=== PATIENT | female | born 1965 | race Caucasian/White ===

== ENCOUNTER 2018-10-05 10:50 | Emergency (ER) | payer OTHER ==
--- OUTSIDE RECORDS SUMMARY | 2018-10-05 10:53 | XMS REPORT | Clinical Summary ---
:1965 Author Organization [facility] Address [address] [place] [address] Care Team Providers Name Role Phone Asked, No Pcp Primary Care Provider Unavailable Allergies Active Allergy Reactions Severity Noted Date Comments No Known Drug Allergies 05/06/2016 Medications Medication Sig Dispensed Refills Start End Status Date Date amLODIPine (NORVASC) Take 10 mg by 5 08/02/20 Active 10 mg tablet mouth once daily. 16 losartan (COZAAR) 100 Take 100 mg by 5 07/08/20 Active MG tablet mouth once daily. 16 ascorbic acid, Take 1,000 mg by 0 Active vitamin C, (vitamin mouth daily. C) 1000 MG tablet multivitamin with Take 1 tablet by 0 Active minerals tablet mouth daily. DUAVEE 0.45-20 mg Take 1 tablet by 1 08/19/20 Active tablet mouth every other 17 day. simvastatin (ZOCOR) Take 40 mg by 0 Active 40 MG tablet mouth nightly. atenolol (TENORMIN) 0 12/23/19 Active 100 MG tablet 18 montelukast TAKE 1 TABLET 90 tablet 3 03/11/20 Active (SINGULAIR) 10 mg DAILY 18 tablet ibuprofen Take 600 mg by 0 Active (ADVIL,MOTRIN) 600 MG mouth. tablet tofacitinib (XELJANZ Take 11 mg by 30 tablet 5 06/25/20 Active XR) 11 mg tablet mouth daily. 18 019 extended release 24 hr cholecalciferol, Take 2,000 Units 0 Active vitamin D3, (VITAMIN by mouth nightly. D3) 2,000 unit capsule capsule omeprazole (PriLOSEC) TAKE 1 CAPSULE BY 90 capsule 0 08/10/20 Active 40 MG capsule MOUTH EVERY DAY 18 DULoxetine (CYMBALTA) TAKE 1 CAPSULE 90 capsule 0 09/27/20 Active 30 MG capsule DAILY 18 fluticasone (FLONASE) INSTILL 2 SPRAYS 0 07/24/20 Discontinued 50 mcg/actuation IN EACH NOSTRIL 16 018 nasal spray DAILY NEEDED montelukast TAKE 1 TABLET 30 tablet 4 12/04/19 Discontinued (SINGULAIR) 10 mg EVERY DAY 17 018 tablet ENBREL SURECLICK 50 Inject 50 mg 3.92 mL 5 03/24/20 Discontinued mg/mL (0.98 mL) pen under the skin 17 018 injector once a week. DULoxetine (CYMBALTA) TAKE 1 CAPSULE 90 capsule 0 07/10/20 Discontinued 30 MG capsule DAILY 17 018 benzonatate Take 1 capsule 21 capsule 0 10/01/19 (TESSALON) 200 MG (200 mg total) by 18 018 capsule mouth 3 (three) times a day as needed for cough for up to 30 days. moxifloxacin (AVELOX) Take 1 tablet 10 tablet 0 10/01/19 400 mg tablet (400 mg total) by 18 018 mouth daily for 10 days. DULoxetine (CYMBALTA) TAKE 1 CAPSULE 90 capsule 0 10/13/19 Discontinued 30 MG capsule DAILY 18 018 ENBREL SURECLICK 50 INJECT ONE 4 Syringe 4 11/13/19 Discontinued mg/mL (0.98 mL) pen SURECLICK PEN (50 18 018 injector MG) SUBCUTANEOUSLY ONCE A WEEK. REFRIGERATE. DO NOT FREEZE. DULoxetine (CYMBALTA) TAKE 1 CAPSULE 90 capsule 0 01/06/20 Discontinued 30 MG capsule DAILY 18 018 adalimumab (HUMIRA) Inject 0.8 mL (40 1.6 mL 2 01/07/20 Discontinued 40 mg/0.8 mL mg total) under 18 018 injectionIndications: the skin every 14 Rheumatoid arthritis (fourteen) days. involving multiple sites with positive rheumatoid factor (HCC) omeprazole (PriLOSEC) Take 1 capsule 30 capsule 1 03/24/20 Discontinued 40 MG capsule (40 mg total) by 18 018 mouth daily. DULoxetine (CYMBALTA) TAKE 1 CAPSULE 90 capsule 0 03/30/20 Discontinued 30 MG capsule DAILY 18 018 HUMIRA 40 mg/0.8 mL INJECT ONE 1.6 mL 1 04/08/20 Discontinued injectionIndications: SYRINGE (40 MG) 18 018 Rheumatoid arthritis SUBCUTANEOUSLY involving multiple EVERY OTHER WEEK. sites with positive REFRIGERATE. rheumatoid factor (HCC) omeprazole (PriLOSEC) TAKE 1 CAPSULE BY 90 capsule 0 05/18/20 Discontinued 40 MG capsule MOUTH EVERY DAY 18 018 methylPREDNISolone Inject 1 mL (80 1 mL 0 05/20/20 acetate (DEPO-MEDROL) mg total) into 18 018 80 mg/mL injection the shoulder, thigh, or buttocks once for 1 dose. DULoxetine (CYMBALTA) TAKE 1 CAPSULE 90 capsule 0 06/26/20 Discontinued 30 MG capsule DAILY 18 018 methylPREDNISolone Take all tablets 21 tablet 0 08/12/20 (MEDROL DOSEPAK) 4 mg in the morning on 18 018 tablet each row. 6 day 1, 5 day 2, etc. Do not space out over the day. levoFLOXacin Take 1 tablet 7 tablet 0 08/12/20 (LEVAQUIN) 500 MG (500 mg total) by 18 018 tablet mouth daily for 7 days. Active Problems Problem Noted Date Generalized osteoarthritis of hand 09/18/2016 Bilateral non-suppurative otitis media 09/18/2016 Rheumatoid arthritis involving multiple sites with positive rheumatoid 2015 factor Overview: RF+ Depressed-agitated 05/06/2016 HTN (hypertension) 05/06/2016 Tachycardia 05/06/2016 Encounters Date Type Specialty Care Team Description 09/27/2018 Refill Rheumatology Carlota Dave MD 08/12/2018 Orders Only Rheumatology Carlota Dave MD 08/10/2018 Refill Rheumatology Mya Farrar MA 07/17/2018 Orders Only Rheumatology Carlota Dave MD Hypercalcemia ( Primary Dx) 07/15/2018 Office Visit Rheumatology Carlota Dave MD Rheumatoid arthritis involving multiple sites with positive rheumatoid factor (HCC) ( Primary Dx); High risk medication use 06/29/2018 Telephone Rheumatology Dmitri Jalloh MA 06/26/2018 Refill Rheumatology Carlota Dave MD 06/25/2018 Refill Rheumatology Anais Harden MA 06/08/2018 Telephone Rheumatology Anais Harden MA 05/28/2018 Telephone Rheumatology Dmitri Jalloh MA 05/20/2018 Office Visit Rheumatology Carlota Dave MD Rheumatoid arthritis involving multiple sites with positive rheumatoid factor (Primary Dx); High risk medication use 05/16/2018 Refill Rheumatology Carlota Dave MD 04/08/2018 Refill Rheumatology Carlota Dave MD Rheumatoid arthritis involving multiple sites with positive rheumatoid factor 03/28/2018 Refill Rheumatology Carlota Dave MD 03/24/2018 Office Visit Rheumatology Carlota Dave MD Rheumatoid arthritis involving multiple sites with positive rheumatoid factor (Primary Dx); Generalized osteoarthritis of hand; High risk medication use; Heartburn 03/11/2018 Refill Pulmonology Mohsen Alas MD 01/29/2018 Telephone Rheumatology Carlota Dave MD 01/07/2018 Telephone Rheumatology Dmitri Jalloh MA 01/06/2018 Office Visit Rheumatology Carlota Dave MD Rheumatoid arthritis involving multiple sites with positive rheumatoid factor (Primary Dx) 01/04/2018 Refill Rheumatology Carlota Dave MD 11/13/2017 Refill Rheumatology Carlota Dave MD 10/13/2017 Refill Rheumatology Carlota Dave MD after 10/04/2017 Family History Medical History Relation Name Comments Rheum arthritis Maternal Grandmother Other Sister Relation Name Status Comments Maternal Grandmother (Age 96) Sister Primary Biliary Cirrhnosis Social History Tobacco Use Types Packs/Day Years Used Date Current Every Day Smoker Cigarettes Smokeless Tobacco: Never Used Alcohol Use Drinks/Week oz/Week Comments Yes 2 Glasses of wine 1.2 Sex Assigned at Date Recorded Not on file Job Start Date Occupation Industry Not on file Not on file Not on file Travel History Travel Start Travel End No recent travel history available. Last Filed Vital Signs Vital Sign Reading Time Taken Blood Pressure 141/85 07/15/2018 4:15 PM CDT Pulse 67 07/15/2018 4:15 PM CDT Temperature - - Respiratory Rate - - Oxygen Saturation - - Inhaled Oxygen Concentration - - Weight 82.1 kg (181 lb) 07/15/2018 4:15 PM CDT Height 154.9 cm (5' 1") 01/06/2018 3:30 PM CDT Body Mass Index 34.2 07/15/2018 4:15 PM CDT Plan of Treatment Date Type Specialty Care Team Description 01/06/2019 [place] [address] [facility] [address] [place] [address] [phone] Health Maintenance Due Date Last Done Comments CERVICAL CANCER SCREENING 1987 BREAST CANCER SCREENING 2016 COLON CANCER SCREENING 2016 SHINGLES VACCINES (1 of 2) 2016 INFLUENZA VACCINE 04/29/2018 Procedures Procedure Name Priority Date/Time Associated Diagnosis Comments PTH, INTACT AND Routine 07/21/2018 8:15 Hypercalcemia Results for this CALCIUM AM CDT procedure are in the results section. C-REACTIVE PROTEIN Routine 07/15/2018 5:06 Rheumatoid arthritis Results for this PM CDT involving multiple procedure are in sites with positive the results rheumatoid factor section. ([facility]) SEDIMENTATION RATE Routine 07/15/2018 5:06 Rheumatoid arthritis Results for this PM CDT involving multiple procedure are in sites with positive the results rheumatoid factor section. (HCC) COMPREHENSIVE Routine 07/15/2018 5:06 Rheumatoid arthritis Results for this METABOLIC PANEL PM CDT involving multiple procedure are in sites with positive the results rheumatoid factor section. ([facility]) CBC WITH PLATELET AND Routine 07/15/2018 5:06 Rheumatoid arthritis Results for this DIFFERENTIAL PM CDT involving multiple procedure are in sites with positive the results rheumatoid factor section. ([facility]) COMPREHENSIVE Routine 06/17/2018 3:11 Rheumatoid arthritis Results for this METABOLIC PANEL PM CDT involving multiple procedure are in sites with positive the results rheumatoid factor section. High risk medication use CBC WITH PLATELET AND Routine 06/17/2018 3:11 Rheumatoid arthritis Results for this DIFFERENTIAL PM CDT involving multiple procedure are in sites with positive the results rheumatoid factor section. High risk medication use C-REACTIVE PROTEIN Routine 03/24/2018 11:27 Rheumatoid arthritis Results for this AM CDT involving multiple procedure are in sites with positive the results rheumatoid factor section. SEDIMENTATION RATE Routine 03/24/2018 11:27 Rheumatoid arthritis Results for this AM CDT involving multiple procedure are in sites with positive the results rheumatoid factor section. COMPREHENSIVE Routine 03/24/2018 11:27 Rheumatoid arthritis Results for this METABOLIC PANEL AM CDT involving multiple procedure are in sites with positive the results rheumatoid factor section. CBC WITH PLATELET AND Routine 03/24/2018 11:27 Rheumatoid arthritis Results for this DIFFERENTIAL AM CDT involving multiple procedure are in sites with positive the results rheumatoid factor section. TB TB TEST, CELL Routine 01/06/2018 4:34 Results for this IMMUNE MEASURE PM CDT procedure are in the results section. TB GOLD QUANTIFERON Routine 01/06/2018 4:34 Rheumatoid arthritis Results for this PM CDT involving multiple procedure are in sites with positive the results rheumatoid factor section. RHEUMATOID ARTHRITIS Routine 01/06/2018 4:27 Rheumatoid arthritis Results for this 14.3.3 ETA PM CDT involving multiple procedure are in sites with positive the results rheumatoid factor section. CYCLIC CITRULLINATED Routine 01/06/2018 4:27 Rheumatoid arthritis Results for this PEPTIDE AB, IGG PM CDT involving multiple procedure are in sites with positive the results rheumatoid factor section. RHEUMATOID FACTOR Routine 01/06/2018 4:27 Rheumatoid arthritis Results for this PM CDT involving multiple procedure are in sites with positive the results rheumatoid factor section. VECTRA(R) DA DISEASE Routine 01/06/2018 4:27 Rheumatoid arthritis Results for this ACTIVITY PM CDT involving multiple procedure are in sites with positive the results rheumatoid factor section. C-REACTIVE PROTEIN Routine 01/06/2018 4:27 Rheumatoid arthritis Results for this PM CDT involving multiple procedure are in sites with positive the results rheumatoid factor section. SEDIMENTATION RATE Routine 01/06/2018 4:27 Rheumatoid arthritis Results for this PM CDT involving multiple procedure are in sites with positive the results rheumatoid factor section. COMPREHENSIVE Routine 01/06/2018 4:27 Rheumatoid arthritis Results for this METABOLIC PANEL PM CDT involving multiple procedure are in sites with positive the results rheumatoid factor section. CBC WITH PLATELET AND Routine 01/06/2018 4:27 Rheumatoid arthritis Results for this DIFFERENTIAL PM CDT involving multiple procedure are in sites with positive the results rheumatoid factor section. after 10/04/2017 Results PTH, intact and calcium (07/21/2018 8:15 AM CDT) Calcium 10.5 (H) 8.7 - 10.2 mg/dL [facility] PTH 54 15 - 65 pg/mL [facility] PTH Comment [facility] 02 Comment: Interpretation Intact PTHCalcium (pg/mL) (mg/dL) [id number] - 65 8.6 - 10.2 Primary Hyperparathyroidism >65>10.2 Secondary Hyperparathyroidism >65<10.2 Non-Parathyroid Hypercalcemia <65>10.2 Hypoparathyroidism<15 < 8.6 Non-Parathyroid [id number] - 65< 8.6 Specimen Blood Narrative Performed At Performed at: - [facility] [address] [place], [id number] Electric Refrigerator Preparer: Sarwat Price MD, Phone:[phone] Performed at: - [id number] Electric [employer]rigerator Preparer: Dmitri Lee MD, Phone:[phone] Performing Organization Address [facility] Phone Number [facility] 02 Sedimentation rate (07/15/2018 5:06 PM CDT)Only the most recent of3 resultswithin the time period is included. Sedimentation rate 24 0 - 40 mm/hr [facility] Specimen Blood Narrative Performed At Performed at: - [facility] [address] [place], [place] [id number] Electric Refrigerator Preparer: Sarwat Price MD, Phone:[phone] Performing Organization Address [facility] Phone Number [facility] CBC with platelet and differential (07/15/2018 5:06 PM CDT)Only the most recent of4 resultswithin the time period is included. WBC 8.0 3.4 - 10.8 x10E3/uL [facility] RBC 4.16 3.77 - 5.28 x10E6/uL [facility] HGB 12.9 11.1 - 15.9 g/dL [facility] HCT 39.3 34.0 - 46.6 % [facility] MCV 95 79 - 97 fL [facility] MCH 31.0 26.6 - 33.0 pg [facility] MCHC 32.8 31.5 - 35.7 g/dL [facility] RDW 14.2 12.3 - 15.4 % [facility] Platelet count 221 150 - 379 x10E3/uL [facility] Neutrophils 58 Not Estab. % [facility] Lymphocytes 34 Not Estab. % [facility] Monocytes 7 Not Estab. % [facility] Eosinophils 1 Not Estab. % [facility] Basophils 0 Not Estab. % [facility] Neutrophils, absolute 4.7 1.4 - 7.0 x10E3/uL [facility] Lymphocytes, absolute 2.7 0.7 - 3.1 x10E3/uL [facility] Monocytes, absolute 0.5 0.1 - 0.9 x10E3/uL [facility] Eosinophils, absolute 0.1 0.0 - 0.4 x10E3/uL [facility] Basophils, absolute 0.0 0.0 - 0.2 x10E3/uL [facility] Immature granulocytes 0 Not Estab. % [facility] Immature grans (abs) 0.0 0.0 - 0.1 x10E3/uL [facility] Specimen Blood Narrative Performed At Performed at:01 - [facility] [place], [id number] Electric Refrigerator Preparer: Sarwat Price MD, Phone:[phone] Performing Organization Address [facility] Phone Number [facility] C-reactive protein (07/15/2018 5:06 PM CDT)Only the most recent of3 resultswithin the time period is included. CRP 2.8 0.0 - 4.9 mg/L [facility] Specimen Blood Narrative Performed At Performed at: - [facility] [place], [id number] Electric Refrigerator Preparer: Sarwat Price MD, Phone:[phone] Performing Organization Address [facility] Phone Number [facility] Comprehensive metabolic panel (07/15/2018 5:06 PM CDT)Only the most recent of4 resultswithin the time period is included. Glucose 92 65 - 99 mg/dL [facility] BUN, whole blood 19 6 - 24 mg/dL [facility] Creatinine 0.67 0.57 - 1.00 mg/dL [facility] EGFR Non-Afr. [place] 102 >59 mL/min/1.73 [facility] EGFR 118 >59 mL/min/1.73 [facility] BUN/creatinine ratio 28 (H) 9 - 23 [facility] Sodium 140 134 - 144 mmol/L [facility] Potassium 4.6 3.5 - 5.2 mmol/L [facility] Chloride 101 96 - 106 mmol/L [facility] CO2 23 20 - 29 mmol/L [facility] Calcium 10.4 (H) 8.7 - 10.2 mg/dL [facility] Protein 7.5 6.0 - 8.5 g/dL [facility] Albumin, S 4.9 3.5 - 5.5 g/dL [facility] Globulin, total 2.6 1.5 - 4.5 g/dL [facility] Albumin/globulin ratio 1.9 1.2 - 2.2 [facility] Total bilirubin 0.3 0.0 - 1.2 mg/dL [facility] Alkaline phosphatase 61 39 - 117 IU/L [facility] AST 20 0 - 40 IU/L [facility] ALT 34 (H) 0 - 32 IU/L [facility] Specimen Blood Narrative Performed At Performed at:[address] [place], [place] [id number] Electric Refrigerator Preparer: Sarwat Price MD, Phone:[phone] Performing Organization Address [facility] Phone Number [facility] TB GOLD Quantiferon (01/06/2018 4:34 PM CDT) Quantiferon TB gold incubated Incubated, specimen forwarded to [place], [place] [facility] completion of the assay. Specimen Blood Narrative Performed At Performed at: [id number] Electric Refrigerator Preparer: Sarwat Price MD, Phone:[phone] Performing Organization Address [facility] Phone Number [facility] TB QuantiFERON In Tube (01/06/2018 4:34 PM CDT) Quantiferon TB gold Negative Negative [facility] 02 Quantiferon criteria Comment [facility] 02 Comment: To be considered positive a specimen should have a TB Ag minus Nil value greater than or equal to 0.35 IU/mL and in addition the TB Ag minus Nil value must be greater than or equal to 25% of the Nil value. There may be insufficient information in these values to differentiate between some negative and some indeterminate test values. Quantiferon TB Ag value 0.05 IU/mL [facility] 02 Quantiferon NIL value 0.03 IU/mL [facility] 02 Quantiferon mitogen value 5.85 IU/mL [facility] 02 Quantiferon TB Ag minus NIL 0.02 IU/mL [facility] 02 value Interpretation Comment [facility] 02 Comment: The QuantiFERON TB Gold (in Tube) assay is intended for use as an aid in the diagnosis of TB infection. Negative results suggest that there is no TB infection. In patients with high suspicion of exposure, a negative test should be repeated. A positive test indicates infection with Mycobacterium tuberculosis. Among individuals without tuberculosis infection, a positive test may be due to exposure to M. kansasii, M. szulgai or M. marinum. On the Internet, go to cdc.gov/tb for further details. Narrative Performed At Performed at:02 - [facility] [address] [place], [id number] Electric Refrigerator Preparer: Dmitri Lee MD, Phone:[phone] Performing Organization Address City/State/Zipcode Phone Number [facility] 02 14.3.3 eta, Rheumatoid Arthritis (01/06/2018 4:27 PM CDT) 14.3.3 ETA, Rheum. Arthritis <0.20 ng/mL [facility] 02 Comment: Reference Range: < 0.20 Comments: 14-3-3 eta protein is a joint-derived, proinflammatory repair order clerk that is implicated in the joint erosion process and pathogenesis of RA.Serum 14-3-3 eta is elevated in both early and established RA. - Diagnostic value: 14-3-3 eta is highly specific for RA. Serum 14-3-3 eta may be especially helpful in identifying patients with early RA where it provides a 15% incremental benefit to the diagnostic sensitivity of markers, Rheumatoid Arthritis (RA) Factor and Cyclic Citrullinated Peptide (CCP) Antibodies, i.e. An additional 15% of early RA patients may be detected by 14-3-3 eta (1). - Correlation with radiographic evidence of joint damage. Positive serum 14-3-3 eta levels are associated with higher rates of joint damage as measured by radiographic assessments (Sharp/van rosario Heijde Score) (2). - Serum 14-3-3 eta levels above a threshold of 0.50 ng/ml identify RA patients who will have more rapid radiographic progression, even those who may be in SDAI remission (1). References: 1. José Miguel N, et al. Serum levels of 14-3-3 eta protein supplement C-reactive protein and rheumatoid arthritis- associated antibodies to predict clinical and radiographic outcomes in aprospective cohort of patients with recent-onset inflammatory polyarthritis. Arthritis Res Ther 2016;18:37 2. Rakesh CARO, et al. 14-3-3 eta is a novel repair order clerk associated with the pathogenesis of rheumatoid arthritis and joint damage. Arthritis Res Ther 2014;16:R99. This test was developed and its performance characteristics determined by [facility]. It has not been cleared or approved by the Food and Drug Administration. Narrative Performed At Performed at:02 - [facility] [address] [place], [place] [id number] Electric Refrigerator Preparer: Jonh Fernandez MD, Phone:[phone] Performing Organization Address City/State/Zipcode Phone Number [facility] 02 Vectra(R) DA Disease Activity (01/06/2018 4:27 PM CDT) Vectra(R) DA score 30Comment: Report Status: Final [facility] Unadjusted Score 28 [facility] Test description Comment [facility] Comment: Vectra DA measures the concentrations of 12 serum proteins. An algorithm is applied to these concentrations to calculate a quantitative disease activity score ranging from 1 to 100. Test results are intended to aid in the assessment of disease activity in patients with rheumatoid arthritis (RA) when used in conjunction with standard clinical assessment. This test is not intended or validated to diagnose RA. As of September 01, 2017 the Vectra DA score is adjusted based on the age, gender and adiposity of the patient. The unadjusted score is provided for historical comparison. The Vectra DA test is intended for clinical use. [facility] [employer] developed Vectra DA and determined its performance characteristics. The [facility] is certified under the Clinical Laboratory Improvement Amendments of 1988 (CLIA) as qualified to perform high complexity clinical testing and is a [employer] [place] [employer] Accredited Laboratory. Medical Dir: Kayden Tariq MD; Leisa Castro MD,[facility](MD) CLIA No. [id number] Rev L Vectra(R) DA level Moderate [facility] Comment: Vectra DA Disease Activity Levels: High: 45 to 100 Moderate: 30 to 44 Low: 1 to 29 Clinical validation Comment [facility] Comment: Vectra DA was validated in adults with RA, 230 who previously tested positive for rheumatoid factor (RF) and/or antibodies to cyclic citrullinated peptide (anti-CCP) and 141 who tested negative for both RF and anti-CCP. The performance of the test may differ between these two populations. (Guy et al. Arthritis Care Res.2012; 64 (12):8597-1415). The Vectra DA disease activity thresholds shown on the first page of this report reflect the Vectra DA score equivalents to [id number] cut-offs of 2.67 (low to moderate) and 4.09 (moderate to high), respectively (Inoue et al. Tania. Rheum Dis 2007;66: 407-409), and were calculated by converting the DAS28 scale (0-9.4) to the Vectra DA scale (1 to 100). The Minimally Important Difference (MID) for Vectra DA is the smallest absolute change in score that is likely to reflect change in disease activity. The MID for patients with moderate or high Vectra DA scores is 7.6. As of September 01, 2017 the Vectra DA score is adjusted based on the age, gender and adiposity of the patient. The unadjusted score is provided for historical comparison. Please note: The individual biomarker results, which are expressed to two significant figures, are required inputs into the algorithm used to calculate the Vectra DA Score. Clinical interpretation of individual biomarker levels, which have different weights in the Vectra DA algorithm, has not been established. MARIA C result 1.1Comment: RA Range: (0.29-85) ug/mL [facility] CRP result 1.4Comment: RA Range: (0.19-92) mg/L [facility] VCAM-1 result 0.47Comment: RA Range: (0.39-1.2) ug/mL [facility] IL-6 result 8.0Comment: RA Range: (2.5-200) pg/mL [facility] TNF-RI result 1.0Comment: RA Range: (0.8-3.9) ng/mL [facility] EGF result 130 pg/mL [facility] Comment: RA Range: (12-410) Inversely correlated with disease activity VEGF-A result 130Comment: RA Range: (75-790) pg/mL [facility] Leptin result 28Comment: RA Range: (1.5-120) ng/mL [facility] Resistin result 9.0Comment: RA Range: (3.5-21) ng/mL [facility] MMP-1 result 5.1Comment: RA Range: (1.3-23) ng/mL [facility] MMP-3 result 8.7Comment: RA Range: (7.9-160) ng/mL [facility] YKL-40 result 58Comment: RA Range: (22-540) ng/mL [facility] Footnote Comment [facility] Comment: RA Range: These 95% reference ranges were established from [phone],781 patient samples tested at [facility]. Complete Vectra DA Score History: Collection Date: Score: 32 (unadjusted)* Collection Date: Score: 31 (unadjusted)* Collection Date: Score: 27 (unadjusted)* Collection Date: Score: 26 (unadjusted)* Collection Date: Score: 16 (unadjusted)* Collection Date: Score: 30 Vectra(R) DA PDF . [facility] Specimen Blood Narrative Performed At Performed at: [facility] [address] [place], [place] [id number] [employer] Preparer: Kayden Tariq MD, Phone:[phone] Performing Organization Address [facility] Phone Number [facility] Cyclic citrullinated peptide antibody, IgG (01/06/2018 4:27 PM CDT) Cyclic citrullin peptide Ab 8 0 - 19 units [facility] Comment: Negative <20 Weak positive 20 - 39 Moderate [id number] - 59 Strong positive >59 Specimen Blood Narrative Performed At [facility]formed at: [facility] [address] [place], [id number] [employer] Preparer: Dmitri Lee MD, Phone:[phone] Performing Organization Address [facility] Phone Number [facility] Rheumatoid factor (01/06/2018 4:27 PM CDT) Rheumatoid arthritis latex turbid <10.0 0.0 - 13.9 IU/mL [facility] Specimen Blood Narrative Performed At [facility]formed at: [facility] [address] [place], [id number] [employer] Preparer: Sarwat Price MD, Phone:[phone] Performing Organization Address City/State/Zipcode Phone Number [facility] after 10/04/2017 Insurance Payer Benefit Plan / Group Subscriber ID Type Phone Address [employer]ETNA AETNA PPO OPEN CHOICE xxxxxxxxxx PPO (Work) [id number] Advance Directives Patient has advance care planning documents on file. For more information, please contact:Ever Chapin[address] [place] [address]
--- NOTE | 2018-10-05 11:22 | RAD REPORT ---
EXAM DESCRIPTION: CT - Head Brain Wo Cont - 10/05/2018 11:15 am CLINICAL HISTORY: DIZZINESS Drowsiness COMPARISON: No comparisons TECHNIQUE: All CT scans are performed using dose optimization technique as appropriate and may inclu de automated exposure control or mA/KV adjustment according to patient size. FINDINGS: No intracranial hemorrhage, hydrocephalus or extra-axial fluid collection.No areas of brai n edema or evidence of midline shift. The paranasal sinuses and mastoids are clear. The calvarium is intact. IMPRESSION: No acute intracranial abnormality.
[2018-10-05 14:22] LABS: Absolute Monocytes 0.5 K/uL (0.1-1.3); Absolute Neutrophil 2.9 K/uL (1.8-8.0); Basophils % 0.5 % (0-1.3); Eosinophils % 1.1 % (0-4.4); Lymphocytes % 36.9 % (15.3-44.8); MPV 10.2 fL (7.6-11.3); Monocytes % 8.3 % (3.3-12.3); RBC Red Blood Cell Count 4.91 M/uL (3.86-4.86)
--- NOTE | 2018-10-05 14:59 | RAD REPORT ---
EXAM DESCRIPTION: RAD - Chest Single View - 10/05/2018 2:51 pm CLINICAL HISTORY: MALAISE Chest pain. COMPARISON: CHEST SINGLE VIEW dated 09/01/2012 FINDINGS: Portable technique limits examination quality. The lungs are grossly clear. The heart is normal in size. No displaced fractures. IMPRESSION: No acute intrathoracic process suspected.
--- NOTE | 2018-10-05 15:22 | ER ---
Nurse's Notes [facility] Name: Luz Kowalski Age: 52 yrs Sex: Female : 1965 Arrival Date: 10/05/2018 Time: 10:51 Bed 19 Private MD: Tre Martinez B Diagnosis: Dizziness and giddiness Presentation: 10/05 11:00 Presenting complaint: Patient states: "I've been having dizzy episodes for about a aa5 week". Pt states "my vision is blurry and I keep having cold sweats". Transition of care: patient was not received from another setting of care. Onset of symptoms was September 2018. Risk Assessment: Do you want to hurt yourself or someone else? Patient reports no desire to harm self or others. Initial Sepsis Screen: Does the patient meet any 2 criteria? No. Patient's initial sepsis screen is negative. Does the patient have a suspected source of infection? No. Patient's initial sepsis screen is negative. Care prior to arrival: None. 11:00 Method Of Arrival: Ambulatory aa5 11:00 Acuity: BARRY 3 aa5 DIRECTOR OF ADMISSIONS: 11:04 LMP N/A - Post-menopause aa5 Historical: - Allergies: 11:04 No Known Allergies; aa5 - Home Meds: 11:04 Xeljanz oral oral [Active]; Atenolol Oral [Active]; Cymbalta oral oral [Active]; aa5 amlodipine oral [Active]; Zocor Oral [Active]; montelukast oral oral [Active]; Cozaar Oral [Active]; Duavee oral oral [Active]; - PMHx: 11:04 Rheumatoid Arthritis; Hypertension; Hyperlipidemia; aa5 - PSHx: 11:04 Knee surgery; foot; aa5 - Immunization history:: Adult Immunizations up to date. - Social history:: Smoking status: Patient uses tobacco products, smokes one-half pack cigarettes per day. - Ebola Screening: : No symptoms or risks identified at this time. Screenin:32 Abuse screen: Denies threats or abuse. Nutritional screening: No deficits noted. tw2 Tuberculosis screening: No symptoms or risk factors identified. Fall Risk None identified. Assessment: 13:30 General: Appears in no apparent distress. Behavior is calm, cooperative, appropriate tw2 for age. Pain: Denies pain. Neuro: Reports dizziness, pt states "i dont know what you call it but its like a get an electrical feeling in my chest at times". Cardiovascular: Heart tones S1 S2 Capillary refill < 3 seconds. Respiratory: Airway is patent Respiratory effort is even, unlabored, Respiratory pattern is regular, symmetrical, Breath sounds are clear bilaterally. GI: No signs and/or symptoms were reported involving the gastrointestinal system. Abdomen is round non-distended, Bowel sounds present X 4 quads. : No signs and/or symptoms were reported regarding the genitourinary system. EENT: No signs and/or symptoms were reported regarding the EENT system. Derm: No signs and/or symptoms reported regarding the dermatologic system. Musculoskeletal: Range of motion: intact in all extremities. 14:31 Reassessment: Patient appears in no apparent distress at this time. No changes from tw2 previously documented assessment. Patient and/or family updated on plan of care and expected duration. Pain level reassessed. Patient is alert, oriented x 3, equal unlabored respirations, skin warm/dry/pink. 15:14 Reassessment: Patient appears in no apparent distress at this time. No changes from tw2 previously documented assessment. Patient and/or family updated on plan of care and expected duration. Pain level reassessed. Patient is alert, oriented x 3, equal unlabored respirations, skin warm/dry/pink. Vital Signs: 11:04 BP 148 / 87; Pulse 77; Resp 18 S; Temp 99.2(O); Pulse Ox 97% on R/A; Weight 79.83 kg aa5 (R); Height 5 ft. 1 in. (154.94 cm) (R); Pain 0/10; 13:29 BP 128 / 71; Pulse 67; Resp 17; Pulse Ox 97% ; tw2 14:31 BP 120 / 73; Pulse 79; Resp 15; Pulse Ox 100% on R/A; tw2 15:14 BP 98 / 61; Pulse 76; Resp 13; Pulse Ox 97% on R/A; tw2 15:30 BP 110 / 63; Pulse 76; Resp 16; Pulse Ox 100% on R/A; tw2 11:04 Body Mass Index 33.25 (79.83 kg, 154.94 cm) aa5 ED Course: 10:51 Patient arrived in ED. sb2 10:51 Tre Martinez MD is Private Physician. sb2 10:59 Arm band placed on. dm5 11:02 Triage completed. aa5 11:13 CT completed. Patient tolerated procedure well. Patient moved to CT via wheelchair. sj Patient taken to lobby, Patient moved back from CT. 11:15 CT Head Brain wo Cont In Process Unspecified. EDMS 13:28 Amie Marino RN is Primary Nurse. tw2 13:30 To Mills MD is Attending Physician. 13:30 Bed in low position. Call light in reach. pricing strategist on. Pulse ox on. NIBP on. tw2 13:58 Missed attempt(s): 22 gauge in left antecubital area. Bleeding controlled, band aid tw2 applied, catheter tip intact. Missed attempt(s): 22 gauge in left antecubital area. blood collected \\T\\ sent. Bleeding controlled, band aid applied, catheter tip intact. 14:36 EKG done, by coding tech. reviewed by To Mills MD. tc 14:52 XRAY Chest (1 view) In Process Unspecified. EDMS 15:33 No provider procedures requiring assistance completed. Patient did not have IV access tw2 during this emergency room visit. Administered Medications: No medications were administered Point of Care Testing: Blood Glucose: 11:08 Blood Glucose: 107 mg/dL; aa5 Ranges: Outcome: 15:22 Discharge ordered by . gs 15:33 Discharged to home ambulatory. tw2 15:33 Condition: stable 15:33 Discharge instructions given to patient, Instructed on discharge instructions, follow up and referral plans. no drinking with medication, no driving heavy equipment, medication usage, Demonstrated understanding of instructions, follow-up care, medications, Prescriptions given X 1. 15:33 Patient left the ED. tw2 Signatures: Dispatcher [employer] EDNJ Norma Daniels RN RN dm5 Joan Leija Audri, RN RN aa5 Emely Posey, environmental restoration planner EKG Ttc Amie Marino RN RN tw2 To Mills MD MD Grace Stevens sb2
--- NOTE | 2018-10-05 15:22 | EDPHYS ---
Physician Documentation [facility] Name: Luz Kowalski Age: 52 yrs Sex: Female : 1965 Arrival Date: 10/05/2018 Time: 10:51 Bed 19 Private MD: Tre Martinez B ED Physician To Mills HPI: 10/05 15:09 This 52 yrs old Female presents to ER via Ambulatory with complaints of gs Dizziness. 15:09 The patient presents with dizziness, lightheadedness, vertigo. Onset: The gs symptoms/episode began/occurred 2 week(s) ago. Context: occurred at home. Modifying factors: the symptoms are aggravated by movement of head, standing up, changing position. Associated signs and symptoms: Pertinent negatives: agitation, chest pain, says has to focus but vision is not blurred or having visual field cuts. Severity of symptoms: At their worst the symptoms were moderate in the emergency department the symptoms have resolved. The patient has not experienced similar symptoms in the past. The patient has not recently seen a physician. GAS FITTER: 11:04 LMP N/A - Post-menopause aa5 Historical: - Allergies: 11:04 No Known Allergies; aa5 - Home Meds: 11:04 Xeljanz oral oral [Active]; Atenolol Oral [Active]; Cymbalta oral oral [Active]; aa5 amlodipine oral [Active]; Zocor Oral [Active]; montelukast oral oral [Active]; Cozaar Oral [Active]; Duavee oral oral [Active]; - PMHx: 11:04 Rheumatoid Arthritis; Hypertension; Hyperlipidemia; aa5 - PSHx: 11:04 Knee surgery; foot; aa5 - Immunization history:: Adult Immunizations up to date. - Social history:: Smoking status: Patient uses tobacco products, smokes one-half pack cigarettes per day. - Ebola Screening: : No symptoms or risks identified at this time. ROS: 15:09 All other systems are negative. gs Exam: 15:09 Head/Face: Normocephalic, atraumatic. Eyes: Pupils equal round and reactive to light, gs extra-ocular motions intact. Lids and lashes normal. Conjunctiva and sclera are non-icteric and not injected. Cornea within normal limits. Periorbital areas with no swelling, redness, or edema. ENT: Nares patent. No nasal discharge, no septal abnormalities noted. Tympanic membranes are normal and external auditory canals are clear. Oropharynx with no redness, swelling, or masses, exudates, or evidence of obstruction, uvula midline. Mucous membranes moist. Neck: Trachea midline, no thyromegaly or masses palpated, and no cervical lymphadenopathy. Supple, full range of motion without nuchal rigidity, or vertebral point tenderness. No Meningismus. Chest/axilla: Normal chest wall appearance and motion. Nontender with no deformity. No lesions are appreciated. Cardiovascular: Regular rate and rhythm with a normal S1 and S2. No gallops, murmurs, or rubs. Normal PMI, no JVD. No pulse deficits. 15:09 Back: No spinal tenderness. No costovertebral tenderness. Full range of motion. Skin: Warm, dry with normal turgor. Normal color with no rashes, no lesions, and no evidence of cellulitis. MS/ Extremity: Pulses equal, no cyanosis. Neurovascular intact. Full, normal range of motion. 15:09 Constitutional: The patient appears alert, awake. 15:09 ECG was reviewed by the Attending Physician. 15:09 Neuro: Orientation: is normal, Cranial nerves: CN II- XII are normal as tested, Nystagmus is absent. Cerebellar function: normal finger to nose testing, Motor: moves all fours, strength is normal, Sensation: pin prick testing is normal, Gait: is steady, Deep tendon reflexes are normal. Vital Signs: 11:04 BP 148 / 87; Pulse 77; Resp 18 S; Temp 99.2(O); Pulse Ox 97% on R/A; Weight 79.83 kg aa5 (R); Height 5 ft. 1 in. (154.94 cm) (R); Pain 0/10; 13:29 BP 128 / 71; Pulse 67; Resp 17; Pulse Ox 97% ; tw2 14:31 BP 120 / 73; Pulse 79; Resp 15; Pulse Ox 100% on R/A; tw2 15:14 BP 98 / 61; Pulse 76; Resp 13; Pulse Ox 97% on R/A; tw2 15:30 BP 110 / 63; Pulse 76; Resp 16; Pulse Ox 100% on R/A; tw2 11:04 Body Mass Index 33.25 (79.83 kg, 154.94 cm) aa5 MDM: 13:49 Patient medically screened. gs 15:09 Differential diagnosis: cardiac arrhythmia, idiopathic dizziness, vertigo. Data gs reviewed: vital signs, nurses notes. Response to treatment: the patient's symptoms have markedly improved after treatment, the patient's symptoms have resolved after treatment, and as a result, I will discharge patient. 10/05 13:34 Order name: Basic Metabolic Panel; Complete Time: 15:29 gs 10/05 13:34 Order name: CBC with Diff; Complete Time: 15:09 10/05 11:05 Order name: CT Head Brain wo Cont; Complete Time: 13:31 aa5 10/05 13:34 Order name: Troponin (emerg Dept Use Only); Complete Time: 15:29 gs 10/05 13:34 Order name: XRAY Chest (1 view); Complete Time: 15:09 gs 10/05 13:34 Order name: EKG; Complete Time: 13:34 gs 10/05 13:34 Order name: Cardiac monitoring; Complete Time: 13:47 10/05 13:34 Order name: EKG - Nurse/Tech; Complete Time: 14:14 gs 10/05 13:34 Order name: IV Saline Lock; Complete Time: 13:59 gs 10/05 13:34 Order name: Labs collected and sent; Complete Time: 13:59 gs 10/05 13:34 Order name: O2 Per Protocol; Complete Time: 13:36 gs 10/05 13:34 Order name: O2 Sat Monitoring; Complete Time: 13:36 gs EC:09 Rate is 67 beats/min. Rhythm is regular. MA interval is prolonged. QRS interval is gs normal. QT interval is normal. T waves are Normal. No ST changes noted. Clinical impression: Normal ECG and 1st degree heart block. Interpreted by me. Administered Medications: No medications were administered Point of Care Testing: Blood Glucose: 11:08 Blood Glucose: 107 mg/dL; aa5 Ranges: Critical Glucose Levels:Adult <50 mg/dl or >400 mg/dl <40 mg/dl or >180 mg/dl Disposition: 10/05/18 15:22 Discharged to Home. Impression: Dizziness and giddiness. - Condition is Stable. - Discharge Instructions: Dizziness. - Prescriptions for Meclizine 25 mg Oral Tablet - take 1 tablet by ORAL route every 8 hours As needed; 30 tablet. - Work release form, Medication Reconciliation Form, Thank You Letter, Antibiotic Education, Prescription Opioid Use form. - Follow up: Private Physician; When: 2 - 3 days; Reason: Re-evaluation by your physician. Signatures: Dispatcher [employer] EDElise Melchor, RN RN aa5 Amie Marnio RN RN tw2 To Mills MD MD gs Corrections: (The following items were deleted from the chart) 15:33 15:22 10/05/2018 15:22 Discharged to Home. Impression: Dizziness and giddiness. tw2 Condition is Stable. Forms are Medication Reconciliation Form, Thank You Letter, Antibiotic Education, Prescription Opioid Use. Follow up: Private Physician; When: 2 - 3 days; Reason: Re-evaluation by your physician. gs
[2018-10-05 15:28] LABS: BUN Blood Urea Nitrogen 14 mg/dL (7-18); Bicarbonate 25 mmol/L (21-32); Glucose Level 158 mg/dL (74-106); Potassium 3.7 mmol/L (3.5-5.1); Sodium Level 139 mmol/L (136-145); Troponin (Emerg Dept Use Only) < 0.02 ng/mL (0.0-0.045)
--- NOTE | 2018-10-05 16:03 | EKG ---
Test Date: 2018-10-05 Test Time: 14:14:00 Turntable Operator: JACEK MEASUREMENT RESULTS: Intervals: Rate: 67 [place]: 212 QRSD: 92 QT: 396 QTc: 418 Leona: P: 33 AZ: 212 QRS: 46 T: 37 INTERPRETIVE STATEMENTS: Sinus rhythm with 1st degree AV block Otherwise normal ECG Compared to ECG 09/10/1999 09:29:00 First degree AV block now present Sinus arrhythmia no longer present Electronically Signed On 10-05-18 16:02:37 CONTROLLED AREA CHECKER by Sam Narayanan
== END 2018-10-05 15:33 | disposition home or self-care (01) ==
LOC: ER 10:50
DX: I44.0 Atrioventricular block, first degree (principal); R42 Dizziness and giddiness; F17.210 Nicotine dependence, cigarettes, uncomplicated; M06.9 Rheumatoid arthritis, unspecified; I10 Essential (primary) hypertension; E78.5 Hyperlipidemia, unspecified; Z79.899 Other long term (current) drug therapy
CPT/HCPCS: 36415; 70450; 71045; 80048; 82962; 84484; 85025; 93005; 99285